=== PATIENT | male | born 1960 ===

== ENCOUNTER 2021-11-08 18:22 | Outpatient (REF) | payer OTHER, SELFPAY ==
[2021-11-08 20:09] LABS: Abs Immature Grans 0.02 10^3/uL (0.0-0.06); Absolute Basophil Count 0.06 10^3/uL (0.0-0.2); Absolute Eosinophil Count 0.41 10^3/uL (0.0-0.7); Absolute Lymphocyte Count 1.96 10^3/uL (1.2-3.4); Absolute Monocyte Count 0.58 10^3/uL (0.1-0.8); Absolute Neutrophil Count 4.26 10^3/uL (1.2-6.7); Basophils % 0.8; Eosinophils % 5.6; HCT 44.1 % (40.0-50.0); HGB 14.7 g/dL (13.5-17.5); Immature Grans % 0.3; Lymphocytes % 26.9; MCH 28.5 pg (27.0-33.0); MCHC 33.3 % (32.0-36.0); MCV 86 fL (80-95); MPV 10.2 fL (8.0-11.0); Neutrophils % 58.4; Platelet Count 304 10^3/uL (130-400); RBC 5.16 10^6/uL (4.36-5.78); RDW 12.7 % (11.8-14.1); RDW-SD 39.3 fL; WBC 7.29 10^3/uL (4.4-10.8)
[2021-11-08 21:03] LABS: ALT 30 U/L (16-63); AST 21 U/L (15-37); Albumin 4.1 g/dL (3.4-5.0); Alkaline Phosphatase 95 U/L (46-116); Anion Gap 10.5 mmol/L (3-11); BUN 15 mg/dL (7-18); Bilirubin, Total 0.3 mg/dL (0.2-1.0); CO2 25.5 mmol/L (21.0-32.0); Calcium 8.6 mg/dL (8.5-10.1); Calculated LDL 187 mg/dL (<100); Chloride 102 mmol/L (98-107); Cholesterol 285 mg/dL (<200); Glucose 90 mg/dL (74-106); HDL Cholesterol 52 mg/dL (40-60); Potassium 3.8 mmol/L (3.5-5.1); Sodium 138 mmol/L (136-145); Total Protein 7.8 g/dL (6.4-8.2); Triglyceride 234 mg/dL (<150)
== END 2021-11-08 18:23 | disposition home or self-care (01) ==
LOC: NCHCN 18:22
PROVIDERS: Visit Provider Nurse Practitioner Family
DX: Z00.00 Encounter for general adult medical examination without abnormal findings (principal); Z13.220 Encounter for screening for lipoid disorders; Z13.1 Encounter for screening for diabetes mellitus
CPT/HCPCS: 80053; 80061; 85025

== ENCOUNTER 2022-05-08 17:09 | Outpatient (REF) | payer OTHER, SELFPAY ==
[2022-05-08 20:24] LABS: ALT 36 U/L (16-63); AST 23 U/L (15-37); Albumin 4.3 g/dL (3.4-5.0); Alkaline Phosphatase 99 U/L (46-116); Anion Gap 8.3 mmol/L (3-11); BUN 16 mg/dL (7-18); Bilirubin, Total 0.4 mg/dL (0.2-1.0); CO2 30.7 mmol/L (21.0-32.0); Calculated LDL 79 mg/dL (<100); Chloride 102 mmol/L (98-107); Cholesterol 158 mg/dL (<200); Glucose 87 mg/dL (74-106); HDL Cholesterol 55 mg/dL (40-60); Potassium 3.8 mmol/L (3.5-5.1); Sodium 141 mmol/L (136-145); Total Protein 7.6 g/dL (6.4-8.2); Triglyceride 124 mg/dL (<150)
== END 2022-05-08 17:10 | disposition home or self-care (01) ==
LOC: NCHCN 17:09
PROVIDERS: Visit Provider Nurse Practitioner Family
DX: E78.5 Hyperlipidemia, unspecified (principal); F90.0 Attention-deficit hyperactivity disorder, predominantly inattentive type; K21.9 Gastro-esophageal reflux disease without esophagitis; Z79.899 Other long term (current) drug therapy
CPT/HCPCS: 80053; 80061